=== PATIENT | female | born 1940 | race Caucasian/White ===

== ENCOUNTER 2018-01-17 13:06 | Emergency (ER) | payer MEDICARE, BC ==
[2018-01-17 14:18] VITALS: BP 166/85
--- NOTE | 2018-01-17 14:31 | UC ---
Skin Complaint HPI - HPI Summary HPI Summary: patient has had a cyst at 11:00 on left breast for months---she had a mammogram on 01/11/18 and the next couple days developed increased tenderness and spreading erythema no drainage from site no fever or chills - History of Current Complaint Chief Complaint: UCSkin Time Seen by Provider: 01/17/18 14:19 Stated Complaint: SORE ON CHEST Hx Obtained From: Patient ?: No Onset/Duration: Gradual Onset, Still Present, Worse Since - past 5 days Timing: Constant Pain Intensity: 0 Location: Discrete - cyst with spreading erythema Character: Redness, Raised Aggravating Factor(s): Nothing Alleviating Factor(s): Nothing Associated Signs & Symptoms: Positive: Tenderness - Allergy/Home Medications Allergies/Adverse Reactions: Allergies Allergy/AdvReac Type Severity Reaction Status Date / Time No Known Allergies Allergy Verified 01/17/18 14:19 Review of Systems All Other Systems Reviewed And Are Negative: Yes Constitutional: Positive: Negative Skin: Positive: Other - cyst on left breat with increasing erythema and tender ness Eyes: Positive: Negative ENT: Positive: Negative Respiratory: Positive: Negative Cardiovascular: Positive: Negative Gastrointestinal: Positive: Negative Genitourinary: Positive: Negative Motor: Positive: Negative Neurovascular: Positive: Negative Musculoskeletal: Positive: Negative Neurological: Positive: Negative Psychological: Positive: Negative Is Patient Immunocompromised?: No PMH/Surg Hx/FS Hx/Imm Hx Previously Healthy: No Cardiovascular History: Hypertension - Surgical History Surgical History: Yes Surgery Procedure, Year, and Place: Hysterectomy [facility] [place], Tonsillectomy as a child, lap jasvir , sappendectomy 1985, bilat cataracts [facility] [place], 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 - Family History Known Family History: Positive: None - Social History Occupation: Retired Lives: With Family Alcohol Use: None Substance Use Type: None Smoking Status (MU): Never Smoked Tobacco - Immunization History Most Recent Influenza Vaccination: 2013 Most Recent Tetanus Shot: UTD Most Recent Pneumonia Vaccination: WITHIN FEW YRS Physical Exam Triage Information Reviewed: Yes Appearance: Well-Appearing, No Pain Distress, Well-Nourished Vital Signs: Initial Vital Signs Temp 99 F 01/17/18 14:14 Pulse 71 01/17/18 14:14 Resp 16 01/17/18 14:14 BP 166/85 01/17/18 14:14 Pulse Ox 98 01/17/18 14:14 Vital Signs Reviewed: Yes Eye Exam: Normal Eyes: Positive: Conjunctiva Clear ENT Exam: Normal ENT: Positive: Normal ENT inspection, Hearing grossly normal. Negative: Dental tenderness, Sinus tenderness, Uvula midline Dental Exam: Normal Neck exam: Normal Neck: Positive: Supple, Nontender Respiratory Exam: Normal Respiratory: Positive: Chest non-tender, No respiratory distress, No accessory muscle use Cardiovascular Exam: Normal Cardiovascular: Positive: Pulses Normal, Brisk Capillary Refill Musculoskeletal Exam: Normal Musculoskeletal: Positive: Strength Intact, ROM Intact, No Edema Neurological Exam: Normal Neurological: Positive: Alert Psychological Exam: Normal Skin: Positive: Other - 1 cm firm cyst on chest wall/11:00 left breast with 3 cm x5 cm erythema extending toward nipple--- Course/Dx - Course Course Of Treatment: warm compress, doxycycline, follow cyst with Dr. Gamboa and blood pressure with pcp this week - Diagnoses Provider Diagnoses: hypertension in poor control, abscess with cellulitis left breat/chest wall Discharge - Sign-Out/Discharge Documenting (check all that apply): Patient Departure All imaging exams completed and their final reports reviewed: No Studies - Discharge Plan Condition: Stable Disposition: HOME Prescriptions: DOXYcycline CAP(*) [DOXYcycline 100MG CAP(*)] 100 mg PO BID #20 cap Patient Education Materials: Abscess (ED), Warm Compress or Soak (ED) Referrals: Champ Gamboa MD [Medical Doctor] - 3 Days Shola Frye MD [Primary Care Provider] - 2 Weeks - Billing Disposition and Condition Condition: STABLE Disposition: Home
== END 2018-01-17 14:55 | disposition home or self-care (01) ==
LOC: UCEAST 13:06
DX: N61.1 Abscess of the breast and nipple (principal); N61.0 Mastitis without abscess; I10 Essential (primary) hypertension
CPT/HCPCS: 99212; G0463

== ENCOUNTER 2018-06-27 10:57 | Emergency (ER) | payer MEDICARE, BC ==
--- NOTE | 2018-06-27 12:16 | UC ---
Lower Extremity/Ankle HPI - HPI Summary HPI Summary: 77 yo female presents with right knee pain. She tells me that on 06/24 and 06/25 she was doing a lot of raking in her yard. On 06/26 she woke up with right knee pain that is worse with weight bearing and ambulation. Pain is located on the lateral aspect of her knee. She has taken tylenol, rested, and iced the knee with some relief. Denies specific injury or numbness. She is ambulatory with cane assistance at baseline. - History of Current Complaint Stated Complaint: LEG PAIN Time Seen by Provider: 06/27/18 12:15 Hx Obtained From: Patient Onset/Duration: Sudden Onset Severity Initially: Mild Severity Currently: Mild Pain Intensity: 2 Pain Scale Used: 0-10 Numeric Aggravating Factor(s): Standing, Ambulation Able to Bear Weight: Yes - Allergies/Home Medications Allergies/Adverse Reactions: Allergies Allergy/AdvReac Type Severity Reaction Status Date / Time No Known Allergies Allergy Verified 06/27/18 12:18 PMH/Surg Hx/FS Hx/Imm Hx Cardiovascular History: Hypertension - Surgical History Surgical History: Yes Surgery Procedure, Year, and Place: [place] [facility] [place], Tonsillectomy as a child, lap jasvir , sappendectomy 1985, bilat cataracts [facility] [place], 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 - Family History Known Family History: Positive: None - Social History Occupation: Retired Alcohol Use: None Substance Use Type: None Smoking Status (MU): Never Smoked Tobacco - Immunization History Most Recent Influenza Vaccination: 2013 Most Recent Tetanus Shot: UTD Most Recent Pneumonia Vaccination: WITHIN FEW YRS Review of Systems All Other Systems Reviewed And Are Negative: Yes Constitutional: Positive: Negative Respiratory: Positive: Negative Cardiovascular: Positive: Negative Neurovascular: Positive: Negative Musculoskeletal: Positive: Other: - Knee pain Neurological: Positive: Negative Psychological: Positive: Negative Physical Exam - Summary Physical Exam Summary: GENERAL: NAD. WDWN. No pain distress. SKIN: No rashes, sores, lesions, or open wounds. CHEST: No accessory muscle use. Breathing comfortably and in no distress. CV: . Pulses intact popliteal, PT, and DP. Cap refill <2seconds MSK: RIGHT KNEE: Mild TTP along lateral aspect. FROM. Strength 5/5. No edema or obvious bony deformities. No patella apprehension. Negative Kirill, A/P drawer , [place], and varus/valgus stress. NEURO: Alert. Sensations intact and symmetric B/L LEs PSYCH: Age appropriate behavior. Triage Information Reviewed: Yes Vital Signs: Vital Signs: Temp Pulse Resp BP Pulse Ox 99.8 F 73 18 156/82 97 06/27/18 12:20 06/27/18 12:20 06/27/18 12:20 06/27/18 12:20 06/27/18 12:20 Vital Signs Reviewed: Yes Lower Extremity Course/Dx - Course Course Of Treatment: XR: IMPRESSION: Degenerative changes of the patellofemoral joint and the medial compartment of the right knee. Suspect overuse vs arthritis exacerbation from recent activity. Advised to continue tylenol and RICE. F/u with PCP if symptoms do not improve. - Differential Dx/Diagnosis Provider Diagnosis: Knee pain Discharge - Sign-Out/Discharge Documenting (check all that apply): Patient Departure All imaging exams completed and their final reports reviewed: Yes - Discharge Plan Condition: Stable Disposition: HOME Patient Education Materials: Knee Pain (ED) Referrals: Shola Frye MD [Primary Care Provider] - Additional Instructions: If you develop a fever, shortness of breath, chest pain, new or worsening symptoms - please call your PCP or go to the ED. Your blood pressure was high at todays visit. Please see your primary provider within 4 weeks for recheck and re-evaluation. Continue to rest, ice, and elevate your knee - I suspect your discomfort will improve with rest. - Billing Disposition and Condition Condition: STABLE Disposition: Home
[2018-06-27 12:31] VITALS: BP 156/82
== END 2018-06-27 13:50 | disposition home or self-care (01) ==
LOC: UCEAST 10:57
DX: M25.561 Pain in right knee (principal); M17.11 Unilateral primary osteoarthritis, right knee; I10 Essential (primary) hypertension
CPT/HCPCS: 99212; G0463

== ENCOUNTER → 2019-02-18 10:11 | Day surgery (SDC) | payer MEDICARE, BC ==
[~2019-02-18 10:11] MED LIST: Buffered Lidocaine 1% SYRIN* 1 ML/SYRINGE INTRADERM ONE; Cisatracurium* 2 MG/ML MDV 5 ML ONE; Dexamethasone IV* 4 MG/ML 1 ML (4 MG) ONE; EPHEDrine (Pressors)* 50 MG/ML VIAL ONE; Famotidine IV* 10 MG/ML 2 ML (20 mg) IV ONE; Famotidine IV* 10 MG/ML 2 ML (20 mg) ONE; Lactated Ringers 1000 ML Bag* 1,000 ML IV SCH; Lidocaine 1% w EPI 1:100,000* MDV 20 ML VIAL ONE; Lidocaine 2% PF * 5 ML VIAL ONE; Midazolam* 1 MG/ML 5 ML VIAL (5 MG) ONE; Naloxone* 0.4 MG/ML 1 ML VIAL IV PRN; Ondansetron INJ* 2 MG/ML VIAL IV PRN; Ondansetron INJ* 2 MG/ML VIAL ONE; Phenylephrine 40 MCG/ML SYRINGE ONE; Propofol* 10 MG/ML 20 ML BTL ONE; Succinylcholine* 20 MG/ML 10 ML VIAL ONE; fentaNYL* 50 MCG/ML 2 ML VIAL (100 MCG VIAL) ONE
[2019-02-18] MEDS: fentaNYL* 50 MCG/ML 2 ML VIAL (100 MCG VIAL) IV PRN ×4 (14:34→15:12)
[2019-02-18 16:19] VITALS: BP 165/89
--- NOTE | 2019-02-18 21:26 | OP ---
OPERATIVE REPORT: ADDENDUM: Skin was incised with a 15-blade. The subcutaneous fat was also divided down to the level of platysma, which was divided with a Bovie cautery. The fascia overlying the submandibular gland was then identified. It was divided and reflected superiorly over the gland in an effort to preserve the marginal mandibular branch of the facial nerve. The gland itself was then inspected. It was gently freed down to the level of the digastric muscle. It was freed off of the anterior and posterior bellies of the digastric muscle and then off of the posterior aspect of the mylohyoid muscle. The facial vein was identified and ligated with hemoclips and a silk tie. The hypoglossal nerve was identified and preserved in the course of the dissection as was the lingual nerve. The ganglion coming off of the lingual nerve to the submandibular gland was identified, ligated and tied with a 3-0 silk as was the submandibular duct. The facial artery was identified. It did need to be ligated. It was ligated with hemoclips and 3-0 silk was placed as well. Once the gland was removed in its entirety, the wound was then copiously irrigated. There was minimal oozing , which was easily controlled with bipolar forceps. The wound was then closed in layers. Platysma was reapproximated first as was the dermis with 4-0 Vicryl. 5-0 nylon was then used to close the skin. Steri-Strips were applied. The patient was then extubated and delivered to the PACU in stable condition. [id number]/[facility] #: [id number] [place]
--- NOTE | 2019-02-18 21:35 | OP ---
CONTINUATION ADDENDUM NOW INCLUDED ON THIS REPORT DATE OF OPERATION: 02/18/19 - [facility] DATE OF : 38 SURGEON: Aldo Scott MD MEDICAL SUPPORT ASSISTANT: Benjie Feliciano MD ANESTHESIA: General. PRE-OP DIAGNOSIS: Neoplasm, uncertain behavior, right submandibular gland. POST-OP DIAGNOSIS: Neoplasm, uncertain behavior, right submandibular gland. OPERATIVE PROCEDURE: Right submandibular gland excision. INDICATIONS: This is a 78-year-old woman with a palpable right submandibular gland which enhances on MRI. Fine needle aspiration was concerning for possible low-grade malignancy. ESTIMATED BLOOD LOSS: Less than 15 cc. SPECIMEN: Right submandibular gland. DESCRIPTION OF PROCEDURE: On 02/18/19, the patient was brought to the operating room. General anesthesia was induced and oral endotracheal tube was placed. The patient was then positioned. Her neck was marked, prepped with Betadine, she was sterilely draped, and a time-out was performed. The procedure was begun, approximately 3 cc of 1% lidocaine with 1:100,000 epinephrine was infiltrated into the subcutaneous soft tissue. A 15-blade was then used to make an approximately 2-inch incision 2 fingerbreadths below the mandible. The skin, subcutaneous fat, and platysma were divided exposing the submandibular gland and its overlying fascia. The fascia was then divided and retracted superiorly in an effort to preserve the marginal mandibular branch of the facial nerve. CONTINUATION ADDENDUM: Skin was incised with a 15-blade. The subcutaneous fat was also divided down to the level of platysma, which was divided with a Bovie cautery. The fascia overlying the submandibular gland was then identified. It was divided and reflected superiorly over the gland in an effort to preserve the marginal mandibular branch of the facial nerve. The gland itself was then inspected. It was gently freed down to the level of the digastric muscle. It was freed off of the anterior and posterior bellies of the digastric muscle and then off of the posterior aspect of the mylohyoid muscle. The facial vein was identified and ligated with hemoclips and a silk tie. The hypoglossal nerve was identified and preserved in the course of the dissection as was the lingual nerve. The ganglion coming off of the lingual nerve to the submandibular gland was identified, ligated and tied with a 3-0 silk as was the submandibular duct. The facial artery was identified. It did need to be ligated. It was ligated with hemoclips and 3-0 silk was placed as well. Once the gland was removed in its entirety, the wound was then copiously irrigated. There was minimal oozing , which was easily controlled with bipolar forceps. The wound was then closed in layers. Platysma was reapproximated first as was the dermis with 4-0 Vicryl. 5-0 nylon was then used to close the skin. Steri-Strips were applied. The patient was then extubated and delivered to the PACU in stable condition. [id number]/[facility] #: [id number] Víctor [id number]/[facility] #: [id number] [place]
== END | disposition home or self-care (01) ==
LOC: OR 10:11
PROVIDERS: ATTEND Otolaryngology
DX: K11.23 Chronic sialoadenitis (principal); I10 Essential (primary) hypertension; M81.0 Age-related osteoporosis without current pathological fracture; M19.90 Unspecified osteoarthritis, unspecified site
CPT/HCPCS: 88307; C1776; J0330; J1100; J2250; J2405; J2704; J3010

== ENCOUNTER 2020-02-29 15:12 | Observation (INO) ==
[2020-02-29 16:54] LABS: ABS Eosinophils 0.1 10^3/ul (0-0.6); ABS Lymphocytes 1.1 10^3/ul (1.0-4.8); ABS Monocytes 0.7 10^3/ul (0-0.8); ABS Neutrophils 4.8 10^3/ul (1.5-7.7); Eosinophil % 0.8 %; Hematocrit 44 % (35-47); Hemoglobin 14.6 g/dL (12.0-16.0); Lymphocyte % 16.5 %; Mean Corpuscular HGB Conc 34 g/dL (31-36); Mean Corpuscular Hemoglobin 30 pg (27-31); Mean Corpuscular Volume 90 fL (80-97); Mean Platelet Volume 8.8 fL (7.4-10.4); Nucleated Red Blood Cells % 0.1; Platelet Count 198 10^3/uL (150-450); Red Blood Count 4.84 10^6 /uL (3.70-4.87); Red Cell Distribution Width 15 % (10-15); White Blood Count 6.7 10^3/uL (3.5-10.8)
[2020-02-29 17:14] LABS: ALT 17 U/L (7-52); AST 21 U/L (13-39); Albumin 4.2 g/dL (3.2-5.2); Albumin/Globulin Ratio 2.1 (1-3); Alkaline Phosphatase 63 U/L (34-104); Anion Gap 10 mmol/L (2-11); Blood Urea Nitrogen 12 mg/dL (6-24); C Reactive Protein < 1.00 mg/L (<8.01); CO2 Carbon Dioxide 26 mmol/L (22-32); Calcium 10.5 mg/dL (8.6-10.3); Chloride 102 mmol/L (101-111); EGFR African American 143.6 (>60); EGFR Non-African American 118.7 (>60); Glucose 113 mg/dL (70-100); Potassium 3.2 mmol/L (3.5-5.0); Sodium 138 mmol/L (135-145); Total Protein 6.2 g/dL (6.4-8.9)
[2020-02-29] MEDS ORDERED: Lorazepam PYXIS KEY PRN (17:18)
[2020-02-29] MEDS ORDERED: Potassium Chloride LIQUID 20 MEQ/15 ML LIQUID PO ONE (17:45)
[2020-02-29] MEDS ORDERED: NS 0.9% 1000 ml BAG 1,000 ML IV SCH (17:45)
[2020-02-29] MEDS ORDERED: Lorazepam PYXIS KEY ONE (17:49)
[2020-02-29 18:06] LABS: Urine Appearance Cloudy; Urine Bilirubin Negative (Negative); Urine Blood Negative (Negative); Urine Color Amber; Urine Glucose Negative (Negative); Urine Ketones Trace (Negative); Urine Nitrite Positive (Negative); Urine Protein Negative (Negative); Urine Specific Gravity 1.011 (1.010-1.030); Urine Urobilinogen Negative (Negative)
[2020-02-29 18:21] LABS: Urine Bacteria 1+ (Absent); Urine Red Blood Cell 1+(3-5/hpf) (Absent); Urine Squamous Epithelial Cell Present (Absent); Urine White Blood Cell 2+(11-20/hpf) (Absent)
[2020-02-29] MEDS ORDERED: LORazepam 2 mg VIAL 1 ml IV PUSH ONE (18:50)
[2020-02-29] MEDS ORDERED: cefTRIAXone 1 gm/50 mL NS BAG 1 GM/50 ML BAG IVPB SCH (19:30)
[2020-02-29] MEDS: Heparin 5000 UNITS/ML 1 mL VIAL SUBCUT SCH (22:04)
[2020-03-01] MEDS: Heparin 5000 UNITS/ML 1 mL VIAL SUBCUT SCH ×2 (05:18→13:37)
[2020-03-01] MEDS ORDERED: Cyanocobalamin INJ 1,000 MCG/ML VIAL 1 ML VIAL IM ONE (10:30)
[2020-03-01 11:56] VITALS: BP 150/76
[2020-03-06 10:46] LABS: Copper Level 0.82 mcg/mL (0.75-1.45); Zinc 1.02 mcg/mL (0.66-1.10)
[2020-03-07 14:52] LABS: Methylmalonic Acid 0.17 nmol/mL (<=0.40)
== END 2020-03-01 17:05 | disposition home or self-care (01) ==
LOC: ED 15:12 → MED 15:12
PROVIDERS: ADMIT Hospitalist; ATTEND Hospitalist